=== PATIENT | female | born 1970 | race African-American/Black ===

== ENCOUNTER 2025-05-21 19:27 | Emergency (ER) | payer OTHER, SELFPAY ==
[2025-05-21 19:39] VITALS: BP 136/93
[2025-05-21 19:53] LABS: Hematocrit 41.6 % (37.0-47.0); Hemoglobin 14.3 g/dL (12.0-16.0); Mean Corp Hgb Conc. 34.4 g/dL (33.0-37.0); Mean Corpuscular Volume 86.3 fL (81.0-99.0); Nucleated Red Blood Cells % 0 %; Platelet Count 234 10^3/uL (130-400); Red Cell Dist. Width 11.9 % (11.5-14.5)
[2025-05-21 20:11] LABS: ALT (SGPT) 20 U/L (0-35); AST (SGOT) 17 U/L (14-36); Albumin 4.6 g/dl (3.5-5.0); Alkaline Phosphatase 51 U/L (38-126); Blood Urea Nitrogen 24 mg/dl (7-17); Calcium 10.1 mg/dl (8.4-10.2); Carbon Dioxide 24 mmol/L (22-30); Chloride 105 mmol/L (98-107); Glucose 197 mg/dl (70-99); Potassium 4.4 mmol/L (3.5-5.1); Sodium 135 mmol/L (135-145); Total Protein 7.7 g/dl (6.3-8.2); eGFR > 60.00
[2025-05-21 20:22] LABS: Troponin I < 0.012 ng/ml
[2025-05-21 20:26] LABS: INR 0.97; PT 13.0 Sec (11.4-14.6)
[2025-05-21 20:27] LABS: APTT 20.1 Sec (23.4-35.0)
--- NOTE | 2025-05-21 22:50 | ED.GENMED ---
History of Present Illness
General
Chief Complaint: Chest Pain
Source: patient
Exam Limitations: none
Time Seen by Provider: 05/21/25 22:50
History of Present Illness
History of Present Illness:
54-year-old female with 2 to 3 days of intermittent episodes of indigestion. Feels like heartburn. Last 10 to 15 minutes. Not exertional. She had a few episodes today. Last 1 was late afternoon. No pleuritic pain. No shortness of breath not
exertional. Patient concerned because of a recent of her sister. Also history of pulmonary emboli. She had some left lateral chest pain earlier today. This is also resolved.
Past History
Past History
ED Past Medical History: GERD, NIDDM, Other (Iron deficiency anemia) and Other (Uterine fibroids, endometriosis)
ED Past Surgical History: , Gynecological (D and E June 2018) and Orthopedic (Right knee arthroscopy)
Social History
Tobacco: Non-smoker
Alcohol: None
Personal:
Living: with family
Employment: Employed
Family History
Family History: Hypertension
Review of Systems
Review of Systems
All Other Systems: Not applicable
Constitutional: Denies fever or chills
Cardiac: Denies syncope
Phy Exam
Physical Exam
Physical Exam:
GENERAL: Alert and oriented in no apparent distress
EYE: Orbits normal.
NECK: Supple
CARDIAC: Regular rate and rhythm without any obvious murmurs.
LUNGS: Clear breath sounds,normal
ABDOMEN: Soft, without focal tenderness or distention
NEUROLOGICAL: Alert and oriented , grossly non-focal
SKIN: Warm and dry, no rash or lesion, no discoloration, skin intact.
MUSCULOSKELETAL: No edema,no deformity.Good color
PSYCH: Normal and appropriate interaction.
Scores
Heart Score for Chest Pain Patients
STEMI patient?: No
History: Slightly or Non-Suspicious
ECG: Nonspecific Repolarization
Age: >45 - <65 years
Risk Factors: 1 or 2 Risk Factors
Troponin: </= Normal Limit
Heart Score for Chest Pain Patients: 3
Heart Score Risk: 2.5% MACE over next 6 weeks
Course
Orders/Labs/Results
Orders:
Orders
05/21/25 19:29
Electrocardiogram (*1) Urgent
Reason for Study: Chest Pain
EKG- Treatment ONCE
05/21/25 19:44
Complete Blood Count/With Diff Urgent
Comprehensive Metabolic Panel Urgent
PTT Urgent
Prothrombin Time Urgent
Troponin I Urgent
05/21/25 23:02
Electrocardiogram (*1) Stat
Reason for Study: Other
Other Reason for Exam: chest pain
EKG- Treatment ONCE
CR Chest - 2 Views Urgent
Comment:
Reason For Exam: Indigestion
05/21/25 23:21
D-Dimer Urgent
Troponin I Urgent
Abnormal Lab Results
05/21/25
19:44
APTT 20.1 L Sec
(23.4-35.0)
BUN 24 H mg/dl
(7-17)
Glucose 197 H mg/dl
(70-99)
05/21/25 19:44
05/21/25 19:44
Vital Signs
Initial and Last Documented VS:
Initial Vital Signs
Temp Pulse Resp Pulse Ox
98.3 F 71 18 100
05/21/25 19:32 05/21/25 19:32 05/21/25 19:32 05/21/25 19:32
Last Documented Vital Signs
Temp Pulse Resp BP Pulse Ox
98.3 F 59 19 127/77 98
05/21/25 19:32 05/22/25 00:58 05/22/25 00:58 05/22/25 00:58 05/22/25 00:45
MDM/Problems Addressed
Differential Diagnosis Includes:
Nonexertional vague indigestion feeling intermittent in nature over 2 to 3 days. Moderate cardiac risk factors. Patient in no distress. EKG is stable with nonspecific changes. First troponin is negative. Repeat EKG and troponin are pending.
Highly doubt pulmonary emboli. D-dimer pending.
*Radiology
Radiology exam reviewed: preliminary read by ED provider (Negative)
*Pulse Oximetry
SaO2: 100
Oxygen Mode of Delivery: Room air
Patient hypoxic: no
*EKG
Interpreted by ED Provider?: Yes
Interpretation: abnormal
Comparison EKG: changes noted
Heart Rate: 66
Rhythm: sinus
[place]: normal axis
Interval: normal interval
QRS Pattern: normal QRS
Ischemia: non-specific ST changes
*Critical Care Note
Total Time (30-74mins, 75-104mins- exclusive of procedures): Not Applicable
Update Note
Update Note:
Repeat EKG normal sinus bradycardia at 57. Nonspecific changes patient has remained asymptomatic. Nonexertional symptoms. Stable for close outpatient follow-up
ED Attending Note
-
Portions of this chart may have been created with voice recognition software.� Occasional wrong word or��sound alike� substitutions may have occurred due to the inherent limitations of voice recognition software.
Discharge Plan
Departure
Patient Disposition: Home (Routine Discharge)
Date of Disposition: 05/22/25
Time of Disposition: 00:49
Patient with high blood pressure during this ER visit?: Yes
Discharge Problem:
Intermittent chest pain, Hyperglycemia
Instructions: Chest Pain CBC Follow Up, BLOOD PRESSURE
Prescriptions:
No Action
metformin 1,000 mg Tablet
1,000 mg PO DAILY
aspirin 81 mg Tablet
81 mg PO DAILY
Referrals:
Rancho Tapia MD [Family Provider, Family Practice] - Follow up in 2-3 days
Activity Restrictions/Additional Instructions:
Follow-up your blood sugar with your primary physician
Interventions
Interventions:
*General Assessment Last Done: 05/21/25 19:37
*Neglect/Abuse Screening Last Done: 05/21/25 19:37
*ED COVID-19 Vaccine History Last Done: 05/21/25 19:37
*ED Influenza Vaccine History Last Done: 05/21/25 19:37
[facility] Fall Risk Assessment Tool Last Done: 05/22/25 00:07
*Risk Screen - Suicide (C-SSRS) Last Done: 05/21/25 19:37
*Nursing Disposition Last Done: 05/22/25 01:00
ED- Cardiac Assessment Last Done: 05/22/25 00:07
Discharge Date and Time
Discharge Date/Time: 05/22/25 01:00
Print Language: E[employer] GUINEAN
[2025-05-21 23:16] VITALS: BP 137/82
[2025-05-21 23:51] LABS: D-Dimer < 0.27 ug/mlFEU (0.00-0.50)
[2025-05-21 23:53] LABS: Troponin I < 0.012 ng/ml
[2025-05-22] VITALS: BP 133/81
[2025-05-22 00:07] VITALS: BMI 35.1
[2025-05-22 00:58] VITALS: BP 127/77
== END 2025-05-22 01:00 | disposition home or self-care (01) ==
LOC: EMR 19:27
PROVIDERS: Emergency Medicine; EMERGENCY PHYSICIAN Emergency Medicine; FAMILY PHYSICIAN Family Medicine
DX: R07.89 Other chest pain (principal); K30 Functional dyspepsia; E11.65 Type 2 diabetes mellitus with hyperglycemia; R03.0 Elevated blood-pressure reading, without diagnosis of hypertension; K21.9 Gastro-esophageal reflux disease without esophagitis; D50.9 Iron deficiency anemia, unspecified; Z86.711 Personal history of pulmonary embolism
CPT/HCPCS: 99285; 71046; 80053; 84484; 85025; 85379; 85610; 85730; 93005